=== PATIENT | female | born 1955 | race Caucasian/White ===

== ENCOUNTER 2018-01-21 08:56 | Outpatient (CLI) | payer OTHER ==
--- NOTE | 2018-01-21 14:09 | Ultrasound Report ---
Dysphasia, thyroid nodule: The right lobe measures 10 x 16 x 51 mm in the left lobe measures 10 x 14 x 44 mm. The isthmus has a thickness of 1.6 mm. The echogenicity of both lobes is generally unremarkable. In the right lobe they're too circumscribed lucencies with the larger in the inferior pole measuring 5.2 mm. A similar finding on the left in the mid lobe measures 3 mm. No solid nodules. Impression: Unremarkable exam.
== END 2018-01-21 08:57 | disposition home or self-care (01) ==
LOC: US 08:56
DX: R13.10 Dysphagia, unspecified (principal)
CPT/HCPCS: 76536